=== PATIENT | female | born 1985 | race Caucasian/White ===

== ENCOUNTER 2019-11-09 23:31 | Emergency (ER) | payer OTHER, SELFPAY ==
[2019-11-09 23:33] VITALS: BP 137/92; PULSE 101; RESP 18; TEMP 36.4; O2SAT 98
--- NOTE | 2019-11-10 00:45 | ED.SKABFB ---
HPI - Skin/Abscess/Foreign Bdy General Chief complaint: Skin/Abscess/Foreign Body Stated complaint: abscess under arm Time Seen by Provider: 11/10/19 00:28 Source: patient Mode of arrival: ambulatory Limitations: no limitations History of Present Illness HPI narrative: This patient is a 34 yo female with h/o multiple skin abscess who presents with an abscess to her right axilla. PAtient has had area of redness, pain and swelling to her right axilla for 5 days. She has been using warm compresses without relief . She has had multiple I And Ds. She denies associated nausea, vomiting, fever, weakness. complaint: abscess/boil (right axilla) Onset (ago): day(s) (5) Related Data Allergies Allergy/AdvReac Type Severity Reaction Status Date / Time No Known Allergies Allergy Unknown Verified 11/09/19 23:38 Review of Systems Constitutional: Constitutional: Denies chills and Denies fever(s) ENT: Denies dizziness Gastrointestinal: Gastrointestinal: Denies nausea and Denies vomiting Integumentary/Breasts: Skin/Breast: Reports erythema (right axilla lump) [facility] Past Medical History Medical History (Updated 11/10/19 @ 01:20 by Cristiana Tristan MD) COPD (chronic obstructive pulmonary disease) Diabetes mellitus Surgical History Surgical History (Updated 11/10/19 @ 00:47 by Cristiana Tristan MD) History of ankle surgery Social History Social History (Updated 11/10/19 @ 00:46 by Cristiana Tristan MD) Smoking packs per day: 1 Smoking cigarettes per day: 20.0 Smoking status: Current every day smoker Alcohol intake: current Gender identity (if verbalized by the patient): Female Exam Const: General: healthy appearing, no acute distress and alert Orientation/consciousness: patient oriented x3 HENMT: Head: normocephalic and atraumatic Face and sinus: face symmetric Mouth: Yes Normal oral and palatal mucosa present Teeth and gingiva: poor dentition Throat: posterior oropharynx normal Eyes: EOM: EOMs intact bilaterally Resp: Effort & Inspection: normal respiratory effort Skin: Other: in right axilla- 5 x 5 cm area of swelling, fluctance and tenderness. no drainage. Neuro: General: patient oriented x3 and moves all extremities Psych: Mental Status: mental status grossly normal Course Vital Signs Vital signs: Vital Signs Temperature 97.5 F L 11/09/19 23:33 Pulse Rate 101 H 11/09/19 23:33 Respiratory Rate 18 11/09/19 23:33 Blood Pressure 137/92 H 11/09/19 23:33 Pulse Oximetry 98 11/09/19 23:33 Temperature 97.5 F L 11/09/19 23:33 Pulse Rate 101 H 11/09/19 23:33 Respiratory Rate 18 11/09/19 23:33 Blood Pressure 137/92 H 11/09/19 23:33 Pulse Oximetry 98 11/09/19 23:33 Procedures Abscess I/D other: Date of Incision: 11/10/19 Time of Incision: 01:19 Side (if applicable): right (axilla) Local Anesthetic: lidocaine 1% and with epi Amount of anesthesia used (mL): 2 Technique: incised with #11 blade Amount of fluid expressed (mL): 10 Irrigation: Yes Packing used?: iodoform I&D Results: Pus Discharge Plan Discharge Clinical Impression: Abscess of axilla, right Patient Disposition: Home, Self-Care Condition: Stable Instructions: Antibiotic Form, Abscess (ED), Abscess Follow-up (ED), Abscess Incision and Drainage (DC) Additional Instructions: Today you were treated for an abscess. Follow up with your primary care physician by Friday. You will need your packing removed on Friday. Take antibiotics as prescribed. Prescriptions: New hydrocodone-acetaminophen [[place]] 5-325 mg tablet 1 tablet PO Q6H PRN (Reason: pain) Qty: 8 RF: 0 sulfamethoxazole-trimethoprim [Bactrim DS] 800-160 mg tablet 1 tablet PO Q12H Qty: 14 RF: 0 Follow-up/Referrals: Keri,Agnieszka Gomez MD [Primary Care Provider] - Discharge Date/Time: 11/10/19 01:30
== END 2019-11-10 01:30 | disposition home or self-care (01) ==
PROVIDERS: Emergency Provider General Practice; PCP Internal Medicine Gastroenterology
DX: L02.411 Cutaneous abscess of right axilla (principal); J44.9 Chronic obstructive pulmonary disease, unspecified; E11.9 Type 2 diabetes mellitus without complications; F17.210 Nicotine dependence, cigarettes, uncomplicated
CPT/HCPCS: 10061; 99283

== ENCOUNTER 2020-10-15 18:59 | Emergency (ER) | payer OTHER, SELFPAY ==
--- NOTE | ~2020-10-15 | XR_ITS ---
XR tibia fibula RT 2V DATE: 10/15/2020 20:41 INDICATION: Fall. Lateral and medial bruising, swelling TECHNIQUE: AP and lateral views COMPARISON: None FINDINGS: There is a linear oblique fracture through the neck and very proximal shaft of the fibula, with minimal displacement or angulation. No other fracture or dislocation is evident. Normal alignmen t at the knee and ankle joints. IMPRESSION: Minimally displaced linear oblique fracture through the neck and very proximal shaft of t he fibula Reviewed, dictated and finalized at location A. IMPRESSION: Minimally displaced linear oblique fracture through the neck and ve ry proximal shaft of the fibula
--- NOTE | ~2020-10-15 | XR_ITS ---
XR ankle LT min 3V DATE: 10/15/2020 20:38 INDICATION: Fall. Lateral bruising and swelling TECHNIQUE: 4 views COMPARISON: None FINDINGS: There is prominent lateral soft tissue swelling of the ankle. There is a plate and screws along the distal fibular shaft and lateral malleolus. No hardware fractur e or displacement. At least several small corticated bony densities are noted inferior to the tip of the lateral malleol us. No definite recent fracture is evident. No dislocation. Ankle mortise appears intact. Mild plantar and posterior calcaneal enthesopathy. IMPRESSION: Prominent lateral soft tissue swelling; no definite recent fracture Status post ORIF lateral malleolar fracture Reviewed, dictated and finalized at location A.
--- NOTE | ~2020-10-15 | XR_ITS ---
XR ankle RT min 3V DATE: 10/15/2020 20:39 INDICATION: Fall. Lateral pain. TECHNIQUE: 4 views COMPARISON: None FINDINGS: There is mild to moderate lateral soft tissue swelling. No recent fracture or dislocation of the ankle or disruption of the ankle mortise is evident. Minimal plantar calcaneal enthesopathy. IMPRESSION: Moderate moderate lateral soft tissue swelling; no recent fracture or dislocation is dete cted Reviewed, dictated and finalized at location A. IMPRESSION: Moderate moderate lateral soft tissue swelling; no recent fracture or dislocation is detected
[2020-10-15 19:06] VITALS: BP 133/85; PULSE 98; RESP 18; TEMP 36.3; O2SAT 97
--- NOTE | 2020-10-15 20:23 | ED.LOWEXIN ---
HPI - Extremity Injury (Lower) General Chief Complaint: Extremity Injury, Lower Stated Complaint: rolled both ankles Time Seen by Provider: 10/15/20 19:22 Source: patient Mode of arrival: ambulatory Limitations: no limitations History of Present Illness HPI Narrative: Patient is a 35-year-old female who presents complaining of bilateral ankle pain. Patient reports trip and fall off of neighbor steps approximately 2 days ago. She reports increased pain and swelling. She reports pain with ambulation. She reports previous fracture of left ankle with plates and screws in the past. Large amount of ecchymosis and edema noted to left ankle. Patient denies all other complaints. MD complaint: ankle injury Related Data Allergies Allergy/AdvReac Type Severity Reaction Status Date / Time No Known Allergies Allergy Unknown Verified 11/09/19 23:38 Review of Systems Review of Systems: Narrative: CONSTITUTIONAL: Denies fever, chills, or sweats. EYES: Denies visual changes, redness, or discharge. ENT: Denies rhinorrhea, congestion, sore throat, or otalgia. CARDIOVASCULAR: Denies chest pain, palpitations, or edema. RESPIRATORY: Denies cough or dyspnea. GASTROINTESTINAL: Denies abdominal pain, nausea, vomiting, or diarrhea. GENITOURINARY: Denies dysuria or hematuria. SKIN: Denies rash or itching. MUSCULOSKELETAL: Bilateral ankle pain NEUROLOGIC: Denies headache, numbness, dizziness, or weakness. PSYCHIATRIC: Denies anxiety or depression. [facility] Past Medical History Medical History COPD (chronic obstructive pulmonary disease) Diabetes mellitus Surgical History Surgical History History of ankle surgery Family History Family History (Updated 10/15/20 @ 20:26 by VIVIANA Conner) Other No significant family history Social History Social History Smoking packs per day: 1 Smoking cigarettes per day: 20.0 Smoking status: Current every day smoker Alcohol intake: current Gender identity (if verbalized by the patient): Female Comments At the time of signature, I have reviewed and agree with nursing past medical, surgical, social, and family history unless otherwise noted. Please see nursing chart for further information. There is no relevant family history pertinent to the presenting complaint. Exam Narrative: Exam Narrative: GENERAL: Well-appearing, well-nourished, and in no acute distress. HEAD: Normocephalic, atraumatic. EYES: EOMI. No redness or drainage. ENT: Mucous membranes pink and moist CHEST: No respiratory distress. Clear to auscultation. HEART: Regular rate and rhythm. No murmur appreciated. Normal peripheral pulses. EXTREMITIES: Left ankle: Ecchymosis, edema, tenderness with palpation, good capillary refill. Right ankle: Mild edema SKIN: Warm, dry, no rash. NEURO: No focal deficits. Alert and oriented x3. Gait steady. PSYCH: Normal affect. No signs of depression or anxiety. Course Vital Signs Vital signs: Vital Signs Temperature 36.3 C L 10/15/20 19:06 Pulse Rate 98 10/15/20 19:06 Respiratory Rate 18 10/15/20 19:06 Blood Pressure 133/85 10/15/20 19:06 Pulse Oximetry 97 10/15/20 19:06 Temperature 36.3 C L 10/15/20 19:06 Pulse Rate 98 10/15/20 19:06 Respiratory Rate 18 10/15/20 19:06 Blood Pressure 133/85 10/15/20 19:06 Pulse Oximetry 97 10/15/20 19:06 Reviewed MDM - Extremity Injury (Lower) MDM Narrative Medical decision making narrative: Patient's x-ray shows right fibula fracture. Knee immobilizer applied. Patient to follow-up with Dr. Pollard. Patient is stable for discharge to home with outpatient follow up as needed. Differential Diagnosis Differential diagnosis: Likely ankle sprain and strain, acute internal derangement of knee, fracture of femur and ankle fracture Imaging Data Radiol
[2020-10-15 21:25] VITALS: BP 142/74; PULSE 90; RESP 18; O2SAT 99
== END 2020-10-15 21:26 | disposition home or self-care (01) ==
PROVIDERS: Emergency Provider Nurse Practitioner; PCP Internal Medicine Gastroenterology
DX: S82.831A Other fracture of upper and lower end of right fibula, initial encounter for closed fracture (principal); J44.9 Chronic obstructive pulmonary disease, unspecified; E11.9 Type 2 diabetes mellitus without complications; F17.210 Nicotine dependence, cigarettes, uncomplicated; W10.9XXA Fall (on) (from) unspecified stairs and steps, initial encounter
CPT/HCPCS: 73590; 73610; 99284

== ENCOUNTER 2020-10-23 14:19 | Outpatient (CLI) | payer OTHER, SELFPAY ==
--- NOTE | ~2020-10-23 | CT_ITS ---
EXAMINATION: CT ankle RT wo con DATE: 10/23/2020 15:02 INDICATION: Right ankle fracture. TECHNIQUE: Computed tomography (CT) of the right ankle was performed without intravenous contrast. Au tomated exposure control and iterative reconstruction technique were employed. The dose-length produc t was 446.34 mGy-cm. COMPARISON: Right ankle and right tibia and fibula radiographs 10/15/2020 FINDINGS: Bone alignment is normal. No fracture. There is mild ankle joint osteoarthritis. There is a 2 mm loose body in the posterior aspect of the ankle joint. There is an ankle joint effusion. There are dystrophic calcifications dorsal to the talar neck. There is an enthesophyte at posterior aspect of calcaneal tuberosity. There is soft tissue swelling of the right ankle and dorsal foot. IMPRESSION: 1. No fracture. 2. Mild right ankle joint osteoarthritis. 3. Right ankle joint effusion with small loose body. Reviewed, dictated and finalized at location A.
== END 2020-10-23 14:20 | disposition home or self-care (01) ==
PROVIDERS: PCP Internal Medicine Gastroenterology; Visit Provider Orthopaedic Surgery
DX: S82.61XB Displaced fracture of lateral malleolus of right fibula, initial encounter for open fracture type I or II (principal); X58.XXXA Exposure to other specified factors, initial encounter; M19.071 Primary osteoarthritis, right ankle and foot
CPT/HCPCS: 73700

== ENCOUNTER 2024-08-05 13:06 | Emergency (ER) | payer OTHER, SELFPAY ==
--- NOTE | ~2024-08-05 | XR_ITS ---
EXAMINATION: XR chest 2V DATE: 08/05/2024 14:57 INDICATION: Fever and cough. TECHNIQUE: Frontal and lateral views of the chest were obtained. COMPARISON: Chest 2 views 07/15/2016 FINDINGS: There is no pneumonia, pleural effusion, or pneumothorax. The heart size is normal. There i s chronic height loss of multiple mid thoracic vertebral bodies. IMPRESSION: 1. No acute cardiopulmonary disease. Reviewed, dictated and finalized at location A. Y PROCESSOR
[2024-08-05 13:09] VITALS: BP 132/75; PULSE 91; RESP 18; TEMP 36.7; O2SAT 96
--- OUTSIDE RECORDS SUMMARY | 2024-08-05 13:12 | XMS_ITS | Data Portability ---
Author Organization [facility] [facility] Address [address] [facility] [place] [id number] Assessment No assessment recorded. Plan of Treatment Reminders Order Date Submit Date Provider Last Modified By Organization Details Last Modified Time Details Appointments None recorded. Lab TSH, serum or plasma 2015 016 MIKE [facility]STEVEN, [facility], [address], [place], [address], 6 09:19:39 CMP, serum or plasma 2015 016 MIKE LABPATRICIARP, [facility] [address], [address], [place], [address], 6 09:19:36 HbA1c (hemoglobi n A1c), blood 2015 016 MIKE PRIYA, [address] [place], [place] [address] [address], [address], [place], [address], 6 09:19:38 dhea-sulfa te, serum 2015 016 MIKE LABSTEVEN, [address] [place] [address], [address], [place], [address], 6 09:19:38 testostero ne, total, serum 2015 016 MIKE LABSTEVEN, [address] [place], [place] [address] [address], [address], [place], [address], 6 09:19:37 urinalysis , dipstick 2015 016 [email or web address] In-Office Order, Internal Use Only DO Not Attach Compendium DO Not Attach Compendium, Do Not Delete/merge, [id number] 6 13:56:14 CBC 2015 016 [facility], [address], [address], [place], [address], 6 09:19:35 lipid panel, serum 2015 016 MIKE [facility], [address], [address], [place], [address], 6 09:19:37 microalbum in, urine 2015 016 [email or web address] In-Office Order, Internal Use Only DO Not Attach Compendium DO Not Attach Compendium, Do Not Delete/merge, [id number] 6 13:56:15 glucose, fingerstic k, blood 2015 016 [email or web address] In-Office Order, Internal Use Only DO Not Attach Compendium DO Not Attach Compendium, Do Not Delete/merge, [id number] 6 11:11:52 Referral aquatic therapy referral - Please call patient to schedule 2015 016 [facility], [address] [place], [address], 7 05:01:11 physical therapy back referral 2015 016 [facility], [address] [place], [address], 6 12:43:56 counseling referral 2015 016 [email or web address] Not available 6 12:11:[address] referral 2015 016 [email or web address] Not available 6 12:12:27 clinical document improvement educator referral 2015 016 [email or web address] Not available 6 13:26:30 Procedures None recorded. Surgeries None recorded. Imaging None recorded. Medication Orders sulfametho xazole 800 mg-trimeth oprim 160 mg tablet 2015 016 [facility] [address] [place], [address], 6 10:04:28 metformin 500 mg tablet 2015 016 [facility] [address] [place], [address], 6 10:08:24 sumatripta n 50 mg tablet 2015 016 [facility] [address] [place], [address], 6 13:56:15 sertraline 100 mg tablet 2015 016 [facility] [address] [place], [address], 6 13:56:14 alcohol swabs 2015 016 [facility] [address] [place], [address], 6 11:11:51 metformin 1,000 mg tablet 2015 016 [facility] [address] [place], [address], 6 11:11:52 Patient TargetsNo targets recorded. Patient Instructions Encounter Date Encounter Id Patient Instructions Last Modified By Organization Details Last Modified Time 01/30/2016 [id number] polycystic ovary syndrome: care instructions [facility] Not available 01/30/2016 13:56:15 Will sign PRESTON fo r last two office notes and most recent labs from Dr. Harris in [place], [place] Advised patient to make appointment with OBGYN - she started her periods when she was 28YO - has never had a pap smear wig Not available 01/30/2016 13:56:15 Reason for Referral Counseling Referral for Depr essive disorder Referring Physician: Zita Godoy [facility], Encounter Date: 01/30/2016 Psychiatrist Referral for De pressive disorder Referring Physician: Zita Godoy [facility], Encounter Date: 01/30/2016 Aquatic Therapy Referral for Low back pain Please call patient to schedule Referring Physician: Zita Godoy [facility], Encounter Date: 01/30/2016 Referring Physician: Adriana Godoy [facility], Encounter Date: 01/30/2016 [employer] Referral f or Diabetes mellitus Referring Physician: Zita Godoy [facility], Encounter Date: 02/13/2016 Results Created Date Observation Date Name Description Value Unit Range Abnormal Flag Note LastModifiedBy Organization Detail LastModifiedTime 02/13/20 16 02/13/2016 gluco se, finge rstic k, blood Blood Glucose: mg/dl 150 Not Available In-Off ice Order Internal Use Only DO Not Attach Compendium DO Not Attach Compendium, Do Not Delete/merge, [id number] 02/13/2016 10:48:13 01/30/20 16 01/30/2016 micro album in, urine Microalbumin ABNORM AL Not Available In-Office Order Internal Use Only DO Not Attach Compendium DO Not Attach Compendium, Do Not Delete/merge, [id number] 01/30/2016 13:41:15 01/30/20 16 01/30/2016 urina lysis , dipst ick Leukocytes Negati ve Not Available In-Office Order Internal Use Only DO Not Attach Compendium DO Not Attach Compendium, Do Not Delete/merge, [id number] 01/30/2016 12:10:05 01/30/20 16 01/30/2016 urina lysis , dipst ick Nitrite positi ve Not Available In-Office Order Internal Use Only DO Not Attach Compendium DO Not Attach Compendium, Do Not Delete/merge, [id number] 01/30/2016 12:10:05 01/30/20 16 01/30/2016 urina lysis , dipst ick Urobilinogen 1 Not Available In-Of fice Order Internal Use Only DO Not Attach Compendium DO Not Attach Compendium, Do Not Delete/merge, 01/30/2016 12:10:01/30/20 16 01/30/2016 urina lysis , dipst ick Protein 100 Not Available In-Office Order Internal Use Only DO Not Attach Compendium DO Not Attach Compendium, Do Not Delete/merge, 01/30/2016 12:10:01/30/20 16 01/30/2016 urina lysis , dipst ick pH 5.0 Not Available In-Office Order Internal Use Only DO Not Attach Compendium DO Not Attach Compendium, Do Not Delete/merge, 01/30/2016 12:10:01/30/20 16 01/30/2016 urina lysis , dipst ick Blood Large Not Available In-Office Order Internal Use Only DO Not Attach Compendium DO Not Attach Compendium, Do Not Delete/merge, 01/30/2016 12:10:01/30/20 16 01/30/2016 urina lysis , dipst ick Ketone Trace Not Available In-Office Order Internal Use Only DO Not Attach Compendium DO Not Attach Compendium, Do Not Delete/merge, 01/30/2016 12:10:05 01/30/20 16 01/30/2016 urina lysis , dipst ick Bilirubin Modera te Not Available In-Office Order Internal Use Only DO Not Attach Compendium DO Not Attach Compendium, Do Not Delete/merge, 01/30/2016 12:10:05 01/30/20 16 01/30/2016 urina lysis , dipst ick Glucose 100 Not Available In-Office Order Internal Use Only DO Not Attach Compendium DO Not Attach Compendium, Do Not Delete/merge, 01/30/2016 12:10:01/30/20 16 01/30/2016 urina lysis , dipst ick Appearance Slight ly Cloudy Not Available In-Office Order Internal Use Only DO Not Attach Compendium DO Not Attach Compendium, Do Not Delete/merge, 01/30/2016 12:10:01/30/20 16 01/30/2016 urina lysis , dipst ick Color Red Not Available In-Office Order Internal Use Only DO Not Attach Compendium DO Not Attach Compendium, Do Not Delete/merge, [id number] 01/30/2016 12:10:05 01/30/20 16 01/31/2016 CBC WBC 10.1 x10e3 /uL 3.4-10 .8 Not Available [facility] ([facility]) [address] [facility] [place], [address], 01/31/2016 09:19:35 01/30/20 16 01/31/2016 CBC RBC 5.38 x10e6 /uL 3.77-5 .28 above high normal Not Available [facility] ([facility]) [address] [facility] [place], [address], 01/31/2016 09:19:35 01/30/20 16 01/31/2016 CBC hemoglobin 15.3 g/dL 11.1-1 5.9 Not Available [facility] ([facility]) [address] [facility] [place], [address], 01/31/2016 09:19:35 01/30/20 16 01/31/2016 CBC hematocrit 46.4 % 34.0-4 6.6 Not Available [facility] ([facility]) [address] [facility] [place], [address], 01/31/2016 09:19:35 01/30/20 16 01/31/2016 CBC MCV 86 fL 79-97 Not Available [facility] ([facility]) [address] [facility] [place], [address], 01/31/2016 09:19:35 01/30/20 16 01/31/2016 CBC MCH 28.4 pg 26.6-3 3.0 Not Available [facility] ([facility]) [address] [facility] [place], [address], 01/31/2016 09:19:35 01/30/20 16 01/31/2016 CBC MCHC 33.0 g/dL 31.5-3 5.7 Not Available [facility] ([facility]) [address] [facility], [place], [address], 01/31/2016 09:19:35 01/30/20 16 01/31/2016 CBC RDW 14.6 % 12.3-1 5.4 Not Available [facility] ([facility]) [address] [facility], [place], [address], 01/31/2016 09:19:35 01/30/20 16 01/31/2016 CBC platelets 371 x10e3 /uL 150-37 9 Not Available [facility] ([facility]) [address] [facility], [place], [address], 01/31/2016 09:19:35 01/30/20 16 01/31/2016 CBC neutrophils 56 % Not Avai lable [facility] ([facility]) [address] [facility], [place], [address], 01/31/2016 09:19:35 01/30/20 16 01/31/2016 CBC lymphs 36 % Not Available [facility] ([facility]) [address] [facility], [place], [address], 01/31/2016 09:19:35 01/30/20 16 01/31/2016 CBC monocytes 6 % Not Availa ble [facility] ([facility]) [address] [facility], [place], [address], 01/31/2016 09:19:35 01/30/20 16 01/31/2016 CBC eos 1 % Not Available [facility] ([facility]) [address] [facility], [place], [address], 01/31/2016 09:19:35 01/30/20 16 01/31/2016 CBC basos 1 % Not Available [facility] ([facility]) [address] [facility] [place], [place], [address], 01/31/2016 09:19:35 01/30/20 16 01/31/2016 CBC immature cells [employer] WORKER Not Available [facility] ([facility]) [address] [facility] [place], [place], [address], 01/31/2016 09:19:35 01/30/20 16 01/31/2016 CBC neutrophils (absolute) 5.7 x10e3 /uL 1.4-7. 0 Not Available [facility] ([facility]) [address] [facility], [place], [address], 01/31/2016 09:19:35 01/30/20 16 01/31/2016 CBC lymphs (absolute) 3.6 x10e3 /uL 0.7-3. 1 above high normal Not Available [facility] ([facility]) [address] [facility], [place], [address], 01/31/2016 09:19:35 01/30/20 16 01/31/2016 CBC monocytes(ab solute) 0.6 x10e3 /uL 0.1-0. 9 Not Available [facility] ([facility]) [address] [facility] [place], [place], [address], 01/31/2016 09:19:35 01/30/2001/31/2016 CBC eos (absolute) 0.1 x10e3 /uL 0.0-0. 4 Not Available [facility] ([facility]) [address] [facility] [place], [place], [address], 01/31/2016 09:19:35 01/30/2001/31/2016 CBC baso (absolute) 0.1 x10e3 /uL 0.0-0. 2 Not Available [facility] ([facility]) [address] [facility] [place], [place], [address], 01/31/2016 09:19:35 01/30/2001/31/2016 CBC immature granulocytes 0 % Not Available [facility] ([facility]) [address] [facility] [place], [place], [address], 01/31/2016 09:19:35 01/30/20 16 01/31/2016 CBC immature grans (abs) 0.0 x10e3 /uL 0.0-0. 1 Not Available [facility] ([facility]) [address] [place], [address], 01/31/2016 09:19:35 01/30/20 16 01/31/2016 CBC NRBC [employer] WORKER Not Available [facility] ([facility]) [address] [place], [address], 01/31/2016 09:19:35 01/30/20 16 01/31/2016 CBC hematology comments: [employer]TE[employer]CE WORKER Not Available [facility] ([facility]) [address] [place], [address], 01/31/2016 09:19:35 01/30/2001/31/2016 CMP, serum or plasm a glucose, serum 166 mg/dL 65-99 above high normal Not Available [facility] ([facility]) [address] [place], [address], 01/31/2016 09:19:36 01/30/20 16 01/31/2016 CMP, serum or plasm a BUN 10 mg/dL 6-20 Not Available [facility] ([facility]) [address] [place], [address], 01/31/2016 09:19:36 01/30/2001/31/2016 CMP, serum or plasm a creatinine, serum 0.63 mg/dL 0.57-1 .00 Not Available [facility] ([facility]) [address] [place], [address], 01/31/2016 09:19:36 01/30/2001/31/2016 CMP, serum or plasm a eGFR if nonafricn AM 119 mL/mi n/1.7 3 >59 Not Available [facility] ([facility]) [address] [place], [address], 01/31/2016 09:19:36 01/30/2001/31/2016 CMP, serum or plasm a eGFR if africn AM 137 mL/mi n/1.7 3 >59 Not Available [facility] ([facility]) [address] [facility] [place], [address], 01/31/2016 09:19:36 01/30/20 16 01/31/2016 CMP, serum or plasm a BUN/creatini ne ratio 16 8-20 Not Available [facility] ([facility]) [address] [facility] [place], [address], 01/31/2016 09:19:36 01/30/20 16 01/31/2016 CMP, serum or plasm a sodium, serum 139 mmol/ L 134-14 4 Not Available [facility] ([facility]) [address] [facility] [place], [address], 01/31/2016 09:19:36 01/30/2001/31/2016 CMP, serum or plasm a potassium, serum 4.6 mmol/ L 3.5-5. 2 Not Available [facility] ([facility]) [address] [facility] [place], [address], 01/31/2016 09:19:36 01/30/2001/31/2016 CMP, serum or plasm a chloride, serum 96 mmol/ L 97-108 below low normal Not Available [facility] ([facility]) [address] [facility] [place], [address], 01/31/2016 09:19:36 01/30/2001/31/2016 CMP, serum or plasm a carbon dioxide, total 23 mmol/ L 18-29 Not Available [facility] ([facility]) [address] [facility] [place], [address], 01/31/2016 09:19:36 01/30/2001/31/2016 CMP, serum or plasm a calcium, serum 9.1 mg/dL 8.7-10 .2 Not Available [facility] ([facility]) [address] [place], [address], 01/31/2016 09:19:36 01/30/20 16 01/31/2016 CMP, serum or plasm a protein, total, serum 7.1 g/dL 6.0-8. 5 Not Available [facility] ([facility]) [address] [facility] [place], [address], 01/31/2016 09:19:36 01/30/2001/31/2016 CMP, serum or plasm a albumin, serum 4.1 g/dL 3.5-5. 5 Not Available [facility] ([facility]) [address] [facility] [place], [address], 01/31/2016 09:19:36 01/30/2001/31/2016 CMP, serum or plasm a globulin, total 3.0 g/dL 1.5-4. 5 Not Available [facility] ([facility]) [address] [facility] [place], [address], 01/31/2016 09:19:36 01/30/2001/31/2016 CMP, serum or plasm a A/G ratio 1.4 1.1-2. 5 Not Available [facility] ([facility]) [address] [facility] [place], [address], 01/31/2016 09:19:36 01/30/2001/31/2016 CMP, serum or plasm a bilirubin, total 0.3 mg/dL 0.0-1. 2 Not Available [facility] ([facility]) [address] [facility] [place], [address], 01/31/2016 09:19:36 01/30/2001/31/2016 CMP, serum or plasm a alkaline phosphatase, S 145 IU/L 39-117 above high normal Not Available [facility] ([facility]) [address] [facility] [place], [address], 01/31/2016 09:19:36 01/30/2001/31/2016 CMP, serum or plasm a AST (SGOT) 17 IU/L 0-40 Not Available [facility] ([facility]) [address] [place], [address], 01/31/2016 09:19:36 01/30/20 16 01/31/2016 CMP, serum or plasm a ALT (SGPT) 29 IU/L 0-32 Not Available [facility] ([facility]) [address] [place], [address], 01/31/2016 09:19:36 01/30/20 16 01/31/2016 lipid panel , serum cholesterol, total 172 mg/dL 100-19 9 Not Available [facility] ([facility]) [address] [place], [address], 01/31/2016 09:19:37 01/30/20 16 01/31/2016 lipid panel , serum triglyceride s 81 mg/dL 0-149 Not Available [facility] ([facility]) [address] [place], [address], 01/31/2016 09:19:37 01/30/2001/31/2016 lipid panel , serum HDL cholesterol 44 mg/dL >39 ACCOR DING TO ATP-I II GUIDE LINES , HDL-C >59 MG/DL IS CONSI DERED A NEGAT ONDINA RISK FACTO R FOR CHD. Not Available [facility] ([facility]) [address] [place], [address], 01/31/2016 09:19:37 01/30/2001/31/2016 lipid panel , serum VLDL cholesterol evaristo 16 mg/dL 5-40 Not Available [facility] ([facility]) [address] [place], [address], 01/31/2016 09:19:37 01/30/2001/31/2016 lipid panel , serum LDL cholesterol calc 112 mg/dL 0-99 above high normal Not Available [facility] ([facility]) [address] [place], [address], 01/31/2016 09:19:37 01/30/20 16 01/31/2016 lipid panel , serum comment: [employer] WORKER Not Available [facility] ([facility]) [address] [facility], [place], [address], 01/31/2016 09:19:37 01/30/20 16 01/31/2016 lipid panel , serum T. chol/HDL ratio 3.9 ratio _unit s 0.0-4. 4 T. CHOL/ HDL RATIO MEN WOMEN 1/2 AVG.R ISK 3.4 3.3 AVG.R ISK 5.0 4.4 2X AVG.R ISK 9.6 7.1 3X AVG.R ISK 23.4 11.0 Not Available [facility] ([facility]) [address] [facility], [place], [address], 01/31/2016 09:19:37 01/30/20 16 01/31/2016 testo stero ne, total , serum testosterone , serum 45 NG/dL 8-48 Not Available [facility] ([facility]) [address] [place], [address], 01/31/2016 09:19:37 01/30/20 16 01/31/2016 testo stero ne, total , serum comment: [employer] WORKER Not Available [facility] ([facility]) [address] [place], [address], 01/31/2016 09:19:37 01/30/2001/31/2016 HbA1c (hemo globi n A1c), blood hemoglobin A1C 8.9 % 4.8-5. 6 above high normal PRE-D IABET ES: 5.7 - 6.4 DIABE GARTH: >6.4 GLYCE MARY ANNE CONTR OL FOR ADULT S WITH DIABE GARTH: <7.0 Not Available [facility] ([facility]) [address] [facility] [place], [place], [address], 01/31/2016 09:19:38 01/30/20 16 01/31/2016 dhea- sulfa te, serum DHEA-sulfate 331.8 ug/dL 84.8-3 78.0 Not Available [facility] ([facility]) [address] [facility] [place], [place], [address], 01/31/2016 09:19:38 01/30/20 16 01/31/2016 TSH, serum or plasm a TSH 1.250 uIU/m L 0.450- 4.500 Not Available [facility] ([facility]) [address] [facility] [place], [place], [address], 01/31/2016 09:19:39 07/19/19 17 XR, chest , 2 view No observ ation record ed. [email or web address] Not Available 2016 10:56:47 12/18/19 19 12/13/2018 XR, lumba r spine No observ ation record ed. [email or web address] Not Available 2018 23:02:14 10/16/19 21 10/15/2020 XR, ankle No observ ation record ed. [address] [place] [address], [address], 10/18/2020 09:52:14 10/16/1910/15/2020 XR, ankle No observ ation record ed. [address], [place], [address], 10/18/2020 09:51:57 10/16/1910/15/2020 XR, tibia + fibul a No observ ation record ed. [address], [place], [address], 10/18/2020 09:51:35 10/24/1910/23/2020 CT, ankle , w/ contr ast No observ ation record ed. [address], [place], [address], 10/25/2020 14:09:49 Result Notes None recorded. Problems Name Problem SNOMED Code Status Onset Date Resolution Date Notes Provider Name and Address Organization Details Recorded Time Obesity 304289114 Mable Godoy PA-C Attn: Accounting ,[address] [facility], [place], [place], [address] [place] [address] , [facility] 6 10:12:35 Migraine [id number] Mable Godoy PA-C Attn: Accounting ,[address] [facility], [place], [place], [address] [place] [address] , [facility] 6 10:12:35 Tobacco dependence syndrome 95276228 Active Zita Godoy PA-C Attn: Accounting ,[address] [facility], [place], [place], [address] [place] [address] , [facility] 6 11:11:51 Depressive disorder [id number] Mable Godoy PA-C Attn: Accounting ,[address] [facility], [place], [place], [address] [place] [address] , [facility] 6 11:11:51 Low back pain 360435791 Active Zita Godoy PA-C Attn: Accounting ,[address] [facility], [place], [address] [place] [address] , [facility] 6 10:12:35 Polycystic ovaries Active Zita Godoy PA-C Attn: Accounting ,[address] [facility], [place], [address] [place] [address] , [facility] 6 10:12:35 Hirsutism 137697356 Active Zita Godoy PA-C Attn: Accounting ,[address] [facility], [place], [address] [place] [address] , [place] [facility] 6 10:12:35 Urinary tract infectious disease [id number] Mable Godoy PA-C Attn: Accounting ,[address] [facility], [place], [address] [place] [address] , [place] [facility] 6 10:12:35 Diabetes mellitus 89370304 Active Zita Godoy PA-C Attn: Accounting ,[address] [facility], [place], [address] [place] [address] , [facility] 6 11:11:51 Problem Notes None recorded. Procedures Surgical History Date Name Laterality Status Provider Name and Address Organization Details Recorded Time 6 Tubal Ligation completed Grover Espinoza [facility] 6 11:52:59 Tonsillectomy completed Grover Espinoza [facility] 11:52:59 Imaging Results Imaging Date Name Status [facility] Details LastModified Time 07/19/2016 XR, chest, 2 view completed Information not available 07/22/2016 10:56:47 12/13/2018 XR, lumbar spine completed [email or web address] Information not available 12/27/2018 23:02:14 10/15/2020 XR, ankle completed [email or web address], [address], 10/18/2020 09:52:14 10/15/2020 XR, ankle completed [email or web address], [address], 10/18/2020 09:51:57 10/15/2020 XR, tibia + fibula completed [address], [address], 10/18/2020 09:51:35 10/23/2020 CT, ankle, w/ contrast completed [address], [address], 10/25/2020 14:09:49 Procedure Notes None recorded. Medical Equipment None Reported. Allergies No known drug allergies Medications Name Sig Start Date Stop Date Status Note LastModified by Organization Details LastModified Time metformin 500 mg tablet TAKE ONE TABLET BY MOUTH TWICE DAILY active Not Available Not Available No t Available hydrocodone 5 mg-acetamin ophen 325 mg tablet active Not Available Not Available No t Available sertraline 100 mg tablet TAKE ONE TABLET BY MOUTH ONCE DAILY active Not Available Not Available No t Available sumatriptan 50 mg tablet Take 1 at onset of migraine, if no improveme nt take 2nd after 2 hours. Not to exceed 4 pills in 24 hours active Not Available Not Available No t Available sulfamethox azole 800 mg-trimetho prim 160 mg tablet Take 1 tablet every 12 hours by oral route for 5 days. active Not Available Not Available No t Available tramadol 50 mg tablet active Not Available Not Available No t Available cephalexin 500 mg capsule active Not Available Not Available Not Available metformin 1,000 mg tablet TAKE ONE TABLET BY MOUTH TWICE DAILY DIRECTED active Not Available Not Available No t Available butalbital- aspirin-caf feine 50 mg-325 mg-40 mg capsule 01/29 completed Not Available Not Available Not Available alcohol swabs Apply 1 pad every day by topical route. active Not Available Not Available No t Available pravastatin 20 mg tablet Take 1 tablet every day by oral route in the evening. active Not Available Not Available No t Available levofloxaci n 750 mg tablet active Not Available Not Available Not Available FreeStyle Lite Meter kit active Not Available Not Available Not Available FreeStyle Lite Strips active Not Available Not Available Not Available Safety Seal Lancets 28 gauge active Not Available Not Available Not Available Vitals Date Recorded Body height Body weight Heart rate Body mass index (BMI) Body temperature Respiratory rate Systolic blood pressure Diastolic blood pressure Provider Name and Address Organization Details Last Updated DateTime 6 180.34 cm 659779. 10588 g 78 /min 40 kg/m2 97.7 [degF] 16 /min 116 mm[Hg] 70 mm[Hg] Grover Espinoza [facility] 6 11:52:59 Date Recorded Body height Body mass index (BMI) Respiratory rate Body temperature Heart rate Body weight Systolic blood pressure Diastolic blood pressure Provider Name and Address Organization Details Last Updated DateTime 6 180.34 cm 40.1 kg/m2 14 /min 97.9 [degF] 84 /min 240826. 199256 g 126 mm[Hg] 78 mm[Hg] Grover Espinoza [facility] 6 09:47:07 Social History Question Answer Notes LastModified by Organizat ion Details LastModified Time Tobacco Smoking Status Current Every Day Smoker Grover phan [facility] 01/30/2016 11:52:59 Do You Have An Advance Directive? No Information not available 01/30/2016 What Is Your Level Of Alcohol Consumption? None Information not available 01/30/2016 What Is Your Level Of Caffeine Consumption? Heavy Information not available 01/30/2016 How Much Tobacco Do You Chew? None Information not available 01/30/2016 Are You Currently Employed? No Information not available 01/30/2016 What Type Of Diet Are You Following? REGULAR Information not available 01/30/2016 Which Illicit Or Recreational Drugs Have You Used? Marijuana Information not available 01/30/2016 Education 11 Information no t available 01/30/2016 Are There Any Guns Present In Your Home? No Information not available 01/30/2016 Hard Of Hearing Or Deaf In One Or Both Ears? No Information not available 01/30/2016 Legally Blind In One Or Both Eyes? No Information not available 01/30/2016 Live Alone Or With Others? With Others Mother And Boyfriend Information not available 01/30/2016 Marital Status Single Informatio n not available 01/30/2016 Performs Monthly Self-breast Exam? Yes Information not available 01/30/2016 Do You Use Protection During Sex? No Boyfriend Information not available 01/30/2016 Seat Belts Used Routinely Yes Information not available 01/30/2016 Are You Sexually Active? Yes Information not available 01/30/2016 Smoke Alarm In Home Yes Information not available 01/30/2016 How Much Tobacco Do You Smoke? 1 PPD Information not available 01/30/2016 General Stress Level Medium Information not available 01/30/2016 Do You Use Sunscreen Routinely? Yes Information not available 01/30/2016 Sex: Unknown Functional Status Question Answer Note LastModified by Organizat ion Details LastModified Time What is your exercise level? Occasional Information not available 01/30/2016 Mental Status None recorded. Family History Relationship Description Onset Age of this Age Resolved Age Notes LastModified by Organization Details LastModified Time Mother Malignant tumor of breast Not available 2015 11:52:59 Mother Diabetes mellitus Not available 2015 11:52:59 Mother Hypercholest erolemia Not available 2015 11:52:59 Mother Hypertensive disorder Not available 2015 11:52:59 Father Alcohol abuse Not available 2015 11:52:59 Medical History Condition Response Coronary Artery Disease N Other N Atrial Fibrillation N High Blood Pressure N Depression N COPD N Blood Clots N Anxiety Disorder Y Muscle, Joint, or Bone Problems N Acid Reflux (GERD) N Cancer N Stroke N Headaches Y Kidney or Bladder Problems N Skin Problems N Asthma N Allergies N Hepatitis N High Cholesterol N Liver Disease N Thyroid Problems N GI Problems N Anemia N Heart Attack ([place]) N Diabetes N Seizures/Epilepsy N Heart Failure N Osteoporosis N Gynecological History Statement/Question Response Frequency of Cycle (Q days) 28 Menses Monthly Y Duration of Flow (days) 5 Age at Menarche 28 Current Control Method None LMP Definite Obstetrics History GPAL:G 0 P 0 0 0 0 Past Encounters Encounter ID Performer Location Encounter Start Date Encounter Closed Date Diagnosis/Indication Diagnosis SNOMED-CT Code Diagnosis ICD10 Code Diagnosis Note [id number] CONNIE Henson (Adult Med) [address] [place] [address] [phone] 01/30/2016 11:29:15 01/30/2016 12:32:50 Tobacco dependence syndrome 20764974 F17.290 Obesity 875043677 E66.9 Also had sugar in urine - likely diabetic- will await lab results Migraine 26433914 G43.90 9 Depressive disorder 3548 9007 F32.9 Will restart Zoloft Low back pain 709193805 M54.5 Will refer to PT and aquatic therapy Discussed losing weight for back pain - states that this does not help her with back pain Polycystic ovaries 29389 008 E28.2 Hirsutism 304339670 L68. 0 likely 2/2 PCOS Urinary tr act infectious disease 37606364 N39.0 Adult heal th examination 607699725 Z00.01 30YO female here to establish care. Her only complaints are back pain, depression , and needing a PCP [id number] CONNIE Henson (Adult Med) [address] [place] [address] [phone] 02/13/2016 09:26:37 02/13/2016 10:18:18 Diabetes mellitus 25148556 E11.9 a1c: 8.9 Goal for morning FBS: 100-120 Contact office is BS is <70 or >300 Drinking 2L soda/day - advised she needs to stop that Will increase metforming to 1000mg BID Has an eye doctor appointmen t next month - advised to make them aware that she has DM so that they dilate her eyes Discussed the implicatio ns of DM on her eyes, kidneys, heart, feet States that she is motivated to get off of medication now that she has been started on it Advised 30 minutes of exercise 5 days/week Will put blood sugar machine at [facility] pharmacy WIll refer to diabetes education - given handouts today and long discussion about healthy foods and staying away from drinking her calories RTC 6 weeks with blood sugar log Tobacco de pendence syndrome 42322345 F17.290 Advised to quit smoking Depressive disorder 5753 9003 F32.9 On Zoloft Advised to make counseling and psych appointmen ts on her way out of the office today Health Concerns Section Related Observation LastModified by Organization Detai ls LastModified Time None Recorded Concern Status LastModified by Organization Details LastModified Time None Recorded Advance Directives Directive N: Payers Encounter Date Sequence Insurance Name Policy Number Policy Callahan Covered Member ID Callahan Member ID Guarantor Name 01/30/2016 1 [facility] (MEDICAID HMO) Beti Pate [id number] Beti Pate 02/13/2016 1 [facility] (MEDICAID HMO) Beti Pate [id number] Beti Pate Notes Date Note Type Note Provider Name and Address Organization Details Recorded Time 01/30/2016 text/html Anxiety/Depressi o nReported bypatient.Quality :increased anxiety(stopped her medication d/t no insurance) Severity:denies suicidal ideations Context:major life stressors(taking care of her mother who has breast caner and is a diabetic - she has not worked since she was 15 States that she has chronic back pain) Associated Symptoms:denies homicidal ideations;anxiety ;depression;decre ased effectiveness/pro ductivityNotes:St ates that her 50YO boyfriend is also not currently working and trying to get disability for depression Here to establish care Zita Godoy PA-C Attn: Accounting,[address] [facility], [place], [address], [facility] 01/30/2016 13:56:59 02/13/2016 text/html Diabetes F/UReported bypatient.Labs:jessica hussein A1C result: 8.9 Context:seeing eye doctor regularly (she has an appointment next month); not missing doses of medications;home blood sugar range high Associated Symptoms:no weight gain; no weight loss; no dizziness; no sweats; no headaches; no confusion; no increased thirst; no increased appetite; no increased urination; no blurred vision; no numbness of feet; no calluses on feetNotes:She has an appointment with a dentist coming up as well to have all of her teeth extracted She drinks 2L soda/day and drinks a lot of sweet tea Here for lab f/u and diabetes education Zita Godoy PA-C Attn: Accounting,[address] [place], [address], [facility] 02/13/2016 11:12:04 OBGyn Episode No OBEpisode recorded.
[2024-08-05 15:51] LABS: Influenza A QL RT-PCR Positive (Negative); Influenza B QL RT-PCR Negative (Negative); RSV RNA, RT-PCR Negative (Negative); SARS-CoV-2 RNA PCR Negative (Negative)
--- NOTE | 2024-08-05 16:25 | ED.GENADULT ---
HPI - General Adult General Chief complaint: Upper Respiratory Infection Stated complaint: cough Time Seen by Provider: 08/05/24 16:09 History of Present Illness HPI narrative: Patient is a 39-year-old female presents emergency department with chief complaint of cough and wheezing patient reports that about 5 days ago she started having symptoms reports that she had fever initially now has had cough and has been nonproductive. Patient states that she does smoke a pack of cigarettes per day Related Data Allergies Allergy/AdvReac Type Severity Reaction Status Date / Time No Known Allergies Allergy Unknown Verified 08/05/24 13:11 Review of Systems Review of Systems: A 10 system review of systems was completed on the patient and is negative except for what is stated in the HPI. Nursing and ancillary documentation was reviewed. [facility] Past Medical History Medical History Diabetes mellitus COPD (chronic obstructive pulmonary disease) Surgical History Surgical History History of ankle surgery Family History Family History Other No significant family history Social History Social History Smoking packs per day: 1 Smoking cigarettes per day: 20.0 Smoking status: Current every day smoker Alcohol intake: current Gender identity (if verbalized by the patient): Female Exam Narrative: GENERAL: Well-appearing, well-nourished, and in no acute distress. HEAD: Normocephalic, atraumatic. EYES: PERRLA and EOMI. ENT: Nares clear, no rhinorrhea or epistaxis. Mucous membranes moist. NECK: Supple. CHEST: Scattered wheezes to auscultation. No respiratory distress. HEART: Regular rate and rhythm. No murmur heard. Normal peripheral pulses. ABDOMEN: Soft, nontender, nondistended, normal active bowel sounds. EXTREMITIES: Normal range of motion. No edema. SKIN: Warm, dry, no rash. NEURO: No focal deficits. Alert and oriented x3. PSYCH: Normal mood and affect. Course Vital Signs Vital signs: Vital Signs Temperature 36.7 C 08/05/24 13:09 Pulse Rate 91 08/05/24 13:09 Respiratory Rate 18 08/05/24 13:09 Blood Pressure 132/75 08/05/24 13:09 Pulse Oximetry 96 08/05/24 13:09 Oxygen Delivery Room Air 08/05/24 13:09 Temperature 36.7 C 08/05/24 13:09 Pulse Rate 91 08/05/24 13:09 Respiratory Rate 18 08/05/24 13:09 Blood Pressure 132/75 08/05/24 13:09 Pulse Oximetry 96 08/05/24 13:09 Oxygen Delivery Room Air 08/05/24 13:09 Medical Decision Making MDM Narrative Medical decision making narrative: Differential diagnosis includes pneumonia, COVID, flu, RSV Influenza a was positive Chest x-ray showed no focal infiltrate Vital Signs Vital Signs: Vital Signs Temperature 36.7 C 08/05/24 13:09 Pulse Rate 91 08/05/24 13:09 Respiratory Rate 18 08/05/24 13:09 Blood Pressure 132/75 08/05/24 13:09 Pulse Oximetry 96 08/05/24 13:09 Oxygen Delivery Room Air 08/05/24 13:09 Temperature 36.7 C 08/05/24 13:09 Pulse Rate 91 08/05/24 13:09 Respiratory Rate 18 08/05/24 13:09 Blood Pressure 132/75 08/05/24 13:09 Pulse Oximetry 96 08/05/24 13:09 Oxygen Delivery Room Air 08/05/24 13:09 Lab Data Labs: Lab Results 08/05/24 Range/Units 15:10 Influenza A (RT-PCR) Positive A (Negative) Influenza B (RT-PCR) Negative (Negative) RSV (RT-PCR) Negative (Negative) SARS-CoV-2 RNA (RT-PCR) Negative (Negative) Discharge Plan Discharge Clinical Impression: Influenza Patient Disposition: Home, Self-Care Condition: Stable Instructions: Antibiotic Form, Influenza (ED) Patient Language: Armenian Prescriptions: New albuterol sulfate 90 mcg/actuation HFA aerosol inhaler 2 puff inhalation QID PRN (Reason: shortness of breath or wheezing) Qty: 8.5 0RF prednisone 20 mg tablet 40 mg PO DAILY 5 Days Qty: 10 0RF No Action hydrocodone-acetaminophen [[place]] 5-325 mg tablet 1 tablet PO Q6H PRN (Reason: pain) Qty: 8 0RF sulfamethoxazole-trimethoprim [Bactrim DS] 800-160 mg tablet 1 tablet PO Q12H Qty: 14 0RF hydrocodone-acetaminophen 5-325 mg tablet 1 tablet PO Q6H PRN (Reason: pain) Qty: 10 0RF Follow-up/Referrals: Chris Card MD [Physician] - UNKNOWN,DOCTOR [Primary Care Provider] - Time of Disposition: 16:27
[2024-08-05 16:34] VITALS: BP 139/93; PULSE 88; RESP 16; TEMP 36.6; O2SAT 97
[2024-08-05] MEDS: predniSONE 20 MG TABLET 60 MG PO (16:39)
[2024-08-05] MEDS: IPRATROPIUM 0.5 MG/ALBUTEROL SULFATE 2.5 MG AMPUL.NEB 3 ML INHALATION (16:51)
[2024-08-05 16:52] VITALS: PULSE 91; RESP 20
== END 2024-08-05 16:59 | disposition home or self-care (01) ==
PROVIDERS: Physician Assistant; Emergency Provider Emergency Medicine
DX: J10.1 Influenza due to other identified influenza virus with other respiratory manifestations (principal); Z20.822 Contact with and (suspected) exposure to COVID-19; E11.9 Type 2 diabetes mellitus without complications; J44.9 Chronic obstructive pulmonary disease, unspecified; F17.210 Nicotine dependence, cigarettes, uncomplicated
CPT/HCPCS: 71046; 87637; 94640; 99283; J7512